=== PATIENT | female | born 1960 | race Caucasian/White ===

== ENCOUNTER → 2016-08-27 | Outpatient (CLI) | payer OTHER | LOC: CIMAGING 08:27 | PROVIDERS: ATTEND Family Medicine | DX: Z12.31 Encounter for screening mammogram for malignant neoplasm of breast (principal) | CPT/HCPCS: G0202 ==

== ENCOUNTER 2017-02-08 23:20 | Emergency (ER) | payer OTHER ==
[2017-02-08] MEDS ORDERED: IBUPROFEN 600 MG TAB PO ONE ×2 (23:35→23:37)
[2017-02-08 23:48] VITALS: BP 137/84; PULSE 74; RESP 14; TEMP 98.1; O2SAT 93
[2017-02-09] MEDS ORDERED: HYDROCODONE/APAP 5/325 TAB ONE (00:07)
[2017-02-09] MEDS ORDERED: HYDROCODONE/APAP 5/325 TAB PO ONE (00:09)
--- NOTE | 2017-02-09 01:11 | EDPHY ---
H & P Time Seen by Provider: 02/08/17 23:41 HPI/ROS: CC: left wrist pain s/p fall HPI: This 56-year-old female presents to the emergency department today after tripping on a cobblestone walkway while in [place] this evening. She fell onto her outstretched left wrist and now has an obvious deformity and pain which she rates at 8/10. It hurts to move the wrist. She states she bumped her head slightly but had no loss of consciousness. She denies neck or back pain or any other injury. She is right handed. She has not taken anything for the pain. She did have a couple of alcoholic beverages this evening. REVIEW OF SYSTEMS: Constitutional: No fever, no chills. Eyes: No discharge. Respiratory: No cough, no shortness of breath. Cardiac: No chest pain, no palpitations. Musculoskeletal: No neck or back pain. See HPI. Skin: No rashes. Neurological: No headache. Past Medical/Surgical History: PMH: HTN, Hypothyroid, Anxiety, Arthritis PSH: Appendectomy FH: Denied Allergy: Sulfa - Rash Meds: Synthroid, Amlodipine, Zoloft PCP: Dr. Melissa Ritchie; Ortho - Dr. Yanez (for "knee arthritis") Social History: SOCIAL: Denies tobacco or marijuana. 1 -2 ETOH beverages daily. Smoking Status: Never smoked Physical Exam: General Appearance: Alert, mod distress. Head: Normocephalic, no abrasions or soft tissue swelling. Eyes: Pupils equal and round no pallor or injection. ENT, Mouth: Mucous membranes are moist. Respiratory: There are no retractions, lungs are clear to auscultation. Cardiovascular: Regular rate and rhythm. Gastrointestinal: Abdomen is soft and nontender. Neurological: Awake and alert, sensory and motor exams grossly normal. Skin: Warm and dry, no rashes. Musculoskeletal: Neck and back are supple and nontender. No bony step-offs. Extremities: Obvious dinner-fork deformity of left wrist, tender to palpation. No abrasions or open wounds. Radial pulses intact. No elbow or shoulder pain. No RUE or BLE injury. Psychiatric: Patient is oriented X 3, there is no agitation. DIFFERENTIAL DIAGNOSIS: After history and physical exam differential diagnosis was considered for but not limited to: wrist fracture, dislocation Constitutional: Initial Vital Signs Temperature (C) 98.1 F 02/08/17 23:43 Heart Rate 74 02/08/17 23:43 Respiratory Rate 14 02/08/17 23:43 Blood Pressure 137/84 H 02/08/17 23:43 O2 Sat (%) 93 02/08/17 23:43 O2 Delivery Mode Room Air Allergies/Adverse Reactions: Sulfa (Sulfonamide Antibiotics) Allergy (Verified 02/08/17 23:41) Home Medications: Medication Instructions Recorded Lisinopril 12/20/15 Synthroid 02/08/17 Zoloft 50mg (*) 02/08/17 Medical Decision Making - Diagnostics Imaging Results: Imaging Impressions Wrist X-Ray 02/08/17 23:29 Impression: Radial and ulnar fractures. Imaging: I viewed and interpreted images myself Procedures: A hematoma block was performed on the left wrist using the usual sterile technique. The skin was cleansed with alcohol swabs and ChloraPrep. 10 ml of 0.5% Plain Bupivacaine was injected into the fracture site without difficulty. The patient had immediate relief and the deformity was reduced. The patient tolerated the procedure well. The design technology professorKunal, then placed a sugar-tong splint. CMS intact by my exam s/p splint placement. Sling applied. ED Course/Re-evaluation: The patient was seen and examined. Vital signs reviewed. X-ray of the left wrist showed a comminuted, displaced and slightly angulated distal radius fracture as well as an ulnar styloid fracture. The case was discussed with Dr. Mart, orthopedics. Hematoma block was performed and the deformity was reduced. The ruling technician then placed a sugar-tong splint and sling. CMS intact. She was given [place] for pain in the ER and a take home pack. No prescription. She will follow up with Dr. Mart on Saturday or return to the emergency room sooner if any further problems or concerns. - Data Points Medications Given: Discontinued Medications Hydrocodone Bitart/Acetaminophen ([place] 5/325) 2 tab PO EDNOW ONE Stop: 02/09/17 00:10 Last Admin: 02/09/17 00:12 Dose: 2 tab Ibuprofen (Motrin) 600 mg PO EDNOW ONE Stop: 02/08/17 23:38 Last Admin: 02/08/17 23:38 Dose: 600 mg Departure - Departure Disposition: Home, Routine, Self-Care Clinical Impression: Radius and ulna distal fracture Qualifiers: Encounter type: initial encounter Fracture type: closed Laterality: left Qualified Code(s): S52.502A - Unspecified fracture of the lower end of left radius, initial encounter for closed fracture Condition: Good Instructions: Wrist Fracture in Adults (ED), Splint Care (ED), Hydrocodone/ Acetaminophen (By mouth) Additional Instructions: Keep splint dry. Hydrocodone/Acetaminophen 1 or 2 tablets every 4 hours as needed or Ibuprofen (600mg) every 8 hours as needed for pain. Follow up with orthopedics (Dr. Mart) on Saturday or return to the ER if any further problems or concerns. Referrals: Kunal Mart MD [Medical Doctor] - 02/11/17
[2017-02-09] MEDS ORDERED: HYDROCOD/APAP 5/325 PREPACK#6 BTL TAKEHOME ONE (01:16)
== END 2017-02-09 01:36 | disposition home or self-care (01) ==
LOC: CED 23:20
PROC: 0PSJXZZ Reposition Left Radius, External Approach (ICD-10-PCS; principal; 2017-02-08)
PROC: 0PSLXZZ Reposition Left Ulna, External Approach (ICD-10-PCS; principal; 2017-02-08)
DX: S52.502A Unspecified fracture of the lower end of left radius, initial encounter for closed fracture (principal); S52.602A Unspecified fracture of lower end of left ulna, initial encounter for closed fracture; I10 Essential (primary) hypertension; W01.0XXA Fall on same level from slipping, tripping and stumbling without subsequent striking against object, initial encounter; Y92.480 Sidewalk as the place of occurrence of the external cause
CPT/HCPCS: 73110-PO; A4565

== ENCOUNTER → 2018-05-01 | Outpatient (CLI) | payer OTHER | LOC: BMCIMAGING 10:31 | PROVIDERS: ATTEND Family Medicine | DX: M79.605 Pain in left leg (principal) ==